=== PATIENT | female | born 1965 | race African-American/Black ===

== ENCOUNTER 2019-03-20 11:21 | Emergency (ER) | payer OTHER ==
[2019-03-20 11:33] VITALS: BP 139/75; PULSE 88; TEMP 98.4; BMI 29.5
--- NOTE | 2019-03-20 12:01 | PDOC ---
History of Present Illness - General Chief Complaint: Ear Problem Stated Complaint: RT EAR PAIN Time Seen by Provider: 03/20/19 11:53 - History of Present Illness Initial Comments: 03/20/19 12:00 53-year-old female with a past medical history significant for hypertension presents for evaluation of right ear pain without systemic symptoms 2 days Past History - Past Medical History Allergies/Adverse Reactions: Allergies Allergy/AdvReac Type Severity Reaction Status Date / Time Penicillins Allergy Verified 03/20/19 11:30 COPD: No HTN: Yes - Immunization History Immunization Up to Date: Yes - Suicide/Smoking/Psychosocial Hx Smoking History: Never smoked Hx Alcohol Use: No Drug/Substance Use Hx: No Review of Systems - Review of Systems Constitutional: No: Fever HEENTM: Yes: Ear Pain *Physical Exam - Vital Signs Last Vital Signs Temp Pulse Resp BP Pulse Ox 98.4 F 88 18 139/75 100 03/20/19 11:30 03/20/19 11:30 03/20/19 11:30 03/20/19 11:30 03/20/19 11:30 - Physical Exam Comments: 03/20/19 12:00 HEAD: NC/AT EYES: Conjuntiva clear Ears: Canals and TM's normal NOSE: No d/c THROAT: Moist mucous membrances, oral pharanx clear, uvula midline NECK: Supple without adenopathy CARDIAC: S1 S2 LUNGS: CTA Full and Equal breath sounds ABDOMEN: Soft NT ND MS: Full ROM in all joints without edema NEUROLOGIC: No gross sensory or motor deficits, NVID SKIN: Normal color and temperature no lesions or rashes Medical Decision Making - Medical Decision Making 03/20/19 12:00 Benign examination most likely a viral otalgia or developing upper respiratory infection will have patient follow up with ENT should symptoms persist as well as internal medicine. *DC/Admit/Observation/Transfer Diagnosis at time of Disposition: Ear pain, right Diagnosis at time of Disposition: (Ruled Out): Ear pain, referred - Discharge Dispostion Disposition: HOME Condition at time of disposition: Stable Decision to Admit order: No - Referrals Referrals: Charanjit Bernardo MD [Primary Care Provider] - Oscar Britton MD [Staff Physician] - - Patient Instructions Additional Instructions: Tylenol as directed for pain. Return to the emergency room for worsening symptoms. She didn't symptoms persist please follow-up with ear nose and throat doctor in 1-2 days without fail. You should also follow-up with her internal medicine provider in 1-2 days for further evaluation and treatment options. - Post Discharge Activity
== END 2019-03-20 12:07 | disposition home or self-care (01) ==
LOC: JERFT 11:21
DX: H92.01 Otalgia, right ear (principal); I10 Essential (primary) hypertension
CPT/HCPCS: 99281-25

== ENCOUNTER → 2021-11-13 | Day surgery (SDC) | payer OTHER | END | disposition home or self-care (01) | LOC: FMAMMOTONE 09:34 | PROVIDERS: ATTEND Family Medicine Geriatric Medicine | PROC: 0HBU3ZX Excision of Left Breast, Percutaneous Approach, Diagnostic (ICD-10-PCS; principal; 2021-11-13) | DX: N60.12 Diffuse cystic mastopathy of left breast (principal); N60.22 Fibroadenosis of left breast; N60.32 Fibrosclerosis of left breast; N60.82 Other benign mammary dysplasias of left breast; N64.89 Other specified disorders of breast; R92.0 Mammographic microcalcification found on diagnostic imaging of breast | CPT/HCPCS: 19081; 76098-TC-FY; 87899; 88305-TC; A4648 ==